=== PATIENT | male | born 2000 | race Caucasian/White ===

== ENCOUNTER 2021-08-22 14:35 | Observation (INO) ==
[2021-08-22] MEDS ORDERED: MoRPHine SULFATE 2 MG/ML CARP IV STA (14:52)
[2021-08-22] MEDS ORDERED: ONDANSETRON INJ 2 MG/ML 2 ML VIAL IV STA (14:52)
[2021-08-22] MEDS ORDERED: PROMETHAZINE 12.5 MG/50.5 ML BAG IV STA (14:52)
[2021-08-22] MEDS ORDERED: ACETAMINOPHEN 1000 MG/100 ML IV IV STA (14:52)
[2021-08-22] MEDS ORDERED: SODIUM CHLORIDE 0.9% 1000ML 1,000 ML IV ONE ×2 (14:52→14:55)
--- NOTE | 2021-08-22 14:57 | Emergency Department Note ---
Impression & Plan Precordial chest pain, SOB (shortness of breath), DKA (diabetic ketoacidosis), Acute dehydration, Epigastric abdominal pain ED Provider Note NAME: MAURY FRANCES AGE: 20 SEX: M : 2000 ARRIVES VIA: Ambulance INFORMANT: [Patient] ED PROVIDER(S): [Manfred Dumas MD] CHIEF COMPLAINT: Vomiting, chest pain HISTORY OF PRESENT ILLNESS: The patient is a 20-year-old male who states that he felt unwell yesterday. He began vomiting. Today, he has continued vomiting and has developed some chest and back pain. The pain seems to come almost in waves and is severe. No di arrhea. There has been no cough. No fever. He has no abdominal pain. He is diabetic. As per nursing staff, the patient's blood sugar was in the 300s. The patient has a history of DKA. No reported trauma, patient has no idea why he suddenly started feeling poorly yesterday. REVIEW OF SYSTEMS: See HPI for pertinent positives and negatives. A total of ten systems were reviewed and were otherwise negative. PMHx/PSHx: See Below SOCIAL HISTORY: See Below. PHYSICAL EXAM: GENERAL: Patient is in moderate distress, screaming at times, writhing on the bed. HEENT: No acute trauma, normocephalic atraumatic, mucous membranes dry, no nasal congestion, no scleral icterus. NECK: No stridor, no adenopathy, no meningismus, trachea is midline. LUNGS: Clear to auscultation bilaterally, no wheeze, no rhonchi, breath sounds equal. Increased respiratory rate. HEART: Tachycardic, regular rhythm, subtle systolic murmur. ABDOMEN: Soft, moderately tender in the epigastrium and right upper quadrant, bowel sounds positive, no hernias, no peritonitis. EXTREMITIES: No cyanosis or edema, full range of motion of all the joints without pain or difficulty, no signs for acute trauma. NEUROLOGIC: Oriented x 3, no acute motor or sensory deficits, no focal weakness. SKIN: No rash, no jaundice, no diaphoresis. DIFFERENTIAL DIAGNOSIS: Infection, UTI, DKA, pneumonia, dehydration, metabolic abnormality, hypo/hyperglycemia, electrolyte disturbance, anemia, hypoxia, cardiac sources, toxicologic issues, as well as other pathologies. EMERGENCY DEPARTMENT COURSE/PROCEDURES: ECG: Indication was chest pain. The ECG shows a sinus rhythm with some PACs. There is no ST elevation, no PVCs. The QTC is 495. There is significant baseline artifact seen. Continuous Cardiac Monitoring: An order was placed for continuous cardiac monitoring. The monitor shows a rate of 86 with sinus rhythm with PACs. Critical Care Note: I have personally spent 48 minutes of critical care time in the direct management of this patient. This includes bedside care, interpretation of diagnostic studies, and testing, discussion with consultants, patient, and family members, and other required patient management activities. This 48 minutes is in excess of all separately billable procedures. MEDICAL DECISION MAKING: There is no leukocytosis or concerning anemia. There is a normal platelet count. VBG shows a pH of 7.36. No hypoxia. Renal panel testing shows a low s odium a low carbon oxide and an anion gap of 25. Patient appeared to be acidotic based on the renal panel testing. Glucose was high at 444. Lactic acid level was elevated 2.6, likely from dehydration. There were a few subtle liver enzyme elevations, possibly from his vomiting. The patient appeared to be in euthyroid state. ECG showed a sinus rhythm with some PACs and some sinus arrhythmia. No ST elevation to suggest [place]. Cardiac enzyme testing x1 did not suggest acute cardiac injury. Alcohol level was undetectable. COVID test returns negative. Urinalysis result is currently pending. Chest x-ray did not show pneumonia or CHF, no mediastinal widening. Patient presented in quite a bit of distress/pain. He was aggressively managed. The patient received IV saline 2 L. He was given IV Phenergan, IV Zofran, IV morphine. He received IV Tylenol. He was placed on an insulin drip after an IV insulin bolus. Patient is markedly improved. His heart rate is improved, he is resting comfortably. He no longer has the distress that was present when he first arrived. The patient is aware of his findings, he has agreed to a hospital stay for further hydration and insulin therapy. I spoke with the patient and case management. The on-call hospitalist was consulted. Past Med/Surg History Medical History Acute hyperglycemia DKA (diabetic ketoacidosis) Social History Smoking Status: Never smoker Preferred Language: Ugandan Feels Safe at Home: Yes Allergies Allergies Allergy/AdvReac Type Severity Reaction Status Date / Time pollen extracts Allergy Intermediate Congested Verified 08/22/21 15:52 Home Meds Home Medications Medication Instructions Recorded Confirmed albuterol sulfate 90 mcg/actuation 2 puff INHALATION Q4 PRN 01/19/21 08/22/21 aerosol inhaler insulin aspart U-100 100 unit/mL See Rx Instructions .ROUTE .COMPLEX 01/19/21 08/22/21 subcutaneous solution (Novolog U-100 Insulin aspart) blood-glucose transmitter (Dexcom 08/22/21 08/22/21 G6 Transmitter) Results & Data (ED) Vital Signs Vital Signs - 24 hr 08/22/21 14:35 08/22/21 14:54 08/22/21 15:38 Temperature 36.4 C L Temperature Source Oral Pulse Rate 66 66 Pulse Rate [Right Finger] 95 H Pulse Rhythm Regular Pulse Rhythm [Right Finger] Regular Pulse Strength [Right Finger] Normal Respiratory Rate 26 H 26 H 19 Respiratory Effort / Characteristics Non-Labored Non-Labored Spontaneous Respiratory Depth Normal Normal Respiratory Pattern Regular Blood Pressure 112/54 L Blood Pressure [Right Arm] 118/54 L Blood Pressure Mean 73 Blood Pressure Mean [Right Arm] 75 Blood Pressure Position [Right Arm] Lying Pulse Oximetry 100 100 98 Oxygen Delivery Method Room Air Room Air Room Air Sepsis Recent Fever Within 48 Hours No Sepsis New/Unexplained Change in Mental Status No Sepsis Action Taken by Nursing No Action Required Home Medications Current Medication List: was personally reviewed by me Laboratory Data Attestation: I reviewed the patient's lab results. Result diagrams: 08/22/21 14:50 08/22/21 14:50 Lab Results 08/22/21 08/22/21 08/22/21 Range/Units 14:48 14:50 14:50 WBC 10.77 (4.8-10.8) K/uL RBC 5.11 (4.7-6.1) M/uL Hgb 14.7 (14.0-18.0) g/dL Hct 43.4 (42-52) % MCV 84.9 (80-100) fL MCH 28.8 (25-34) pg MCHC 33.9 (32-36) g/dL RDW Std Deviation 43.2 (36.4-46.3) fL RDW Coeff of Gila 13.9 (11.5-14.5) % Plt Count 346 (130-400) K/uL MPV 12.9 H (7.4-10.4) fL Immature Gran % (Auto) 0.3 % Neut % (Auto) 73.6 % Lymph % (Auto) 22.0 % [place] % (Auto) 2.9 % Eos % (Auto) 0.9 % Baso % (Auto) 0.3 % Neut # (Auto) 7.93 H (1.4-6.5) K/uL Lymph # (Auto) 2.37 (1.2-3.4) K/uL [place] # (Auto) 0.31 (0.11-0.59) K/uL Eos # (Auto) 0.10 (0-0.5) K/uL Baso # (Auto) 0.03 (0-0.2) K/uL Immature Gran # (Auto) 0.03 H (0.00-0.02) K/uL VBG pH (7.36-7.41) VBG pCO2 (38-50) mmHg VBG pO2 mmHg VBG HCO3 mmol/L VBG O2 Saturation % VBG Base Excess mEq/L Barometric Pressure mm/Hg Sodium 131 L (136-145) mmol/L Potassium 4.5 (3.5-5.1) mmol/L Chloride 94 L (98-107) mmol/L Carbon Dioxide 12 L (21-32) mmol/L Anion Gap 25 H (3-11) BUN 24 H (6-23) mg/dl Creatinine 1.17 (0.6-1.4) mg/dl Est Cr Clr Drug Dosing 89.6 ml/min Est GFR ( Amer) 104.1 ml/min Est GFR (Non-Af Amer) 89.8 ml/min BUN/Creatinine Ratio 20.5 H (10-20) Glucose 444 H* (70-99(Fasting)) mg/dl POC Glucose 394 H* (70-99) mg/dl Lactate (0.4-2.0) mmol/L Calcium 9.6 (8.5-10.1) mg/dl Magnesium 2.0 (1.7-2.4) mg/dl Total Bilirubin 1.3 H (0.2-1.0) mg/dl AST 22 (13-39) U/L ALT 21 (7-52) U/L Alkaline Phosphatase 158 H (34-104) U/L Total Creatine Kinase 192 (30-223) U/L Troponin I High Sens < 2.3 (0-20) pg/ml Total Protein 7.3 (6.0-8.3) gm/dl Albumin 4.3 (3.4-5.0) gm/dl Globulin 3.0 (2.5-4.0) gm/dl Albumin/Globulin Ratio 1.4 (0.9-2) TSH (0.300-4.500) uIu/ml Ethyl Alcohol mg/dL (<10.0) mg/dl SARS-CoV-2, RNA, NAAT (NEGATIVE) 08/22/21 08/22/21 08/22/21 Range/Units 14:50 15:08 15:22 WBC (4.8-10.8) K/uL RBC (4.7-6.1) M/uL Hgb (14.0-18.0) g/dL Hct (42-52) % MCV (80-100) fL MCH (25-34) pg MCHC (32-36) g/dL RDW Std Deviation (36.4-46.3) fL RDW Coeff of Gila (11.5-14.5) % Plt Count (130-400) K/uL MPV (7.4-10.4) fL Immature Gran % (Auto) % Neut % (Auto) % Lymph % (Auto) % [place] % (Auto) % Eos % (Auto) % Baso % (Auto) % Neut # (Auto) (1.4-6.5) K/uL Lymph # (Auto) (1.2-3.4) K/uL [place] # (Auto) (0.11-0.59) K/uL Eos # (Auto) (0-0.5) K/uL Baso # (Auto) (0-0.2) K/uL Immature Gran # (Auto) (0.00-0.02) K/uL VBG pH (7.36-7.41) VBG pCO2 (38-50) mmHg VBG pO2 mmHg VBG HCO3 mmol/L VBG O2 Saturation % VBG Base Excess mEq/L Barometric Pressure mm/Hg Sodium (136-145) mmol/L Potassium (3.5-5.1) mmol/L Chloride (98-107) mmol/L Carbon Dioxide (21-32) mmol/L Anion Gap (3-11) BUN (6-23) mg/dl Creatinine (0.6-1.4) mg/dl Est Cr Clr Drug Dosing ml/min Est GFR ( Amer) ml/min Est GFR (Non-Af Amer) ml/min BUN/Creatinine Ratio (10-20) Glucose (70-99(Fasting)) mg/dl POC Glucose (70-99) mg/dl Lactate 2.6 H* (0.4-2.0) mmol/L Calcium (8.5-10.1) mg/dl Magnesium (1.7-2.4) mg/dl Total Bilirubin (0.2-1.0) mg/dl AST (13-39) U/L ALT (7-52) U/L Alkaline Phosphatase (34-104) U/L Total Creatine Kinase (30-223) U/L Troponin I High Sens (0-20) pg/ml Total Protein (6.0-8.3) gm/dl Albumin (3.4-5.0) gm/dl Globulin (2.5-4.0) gm/dl Albumin/Globulin Ratio (0.9-2) TSH 0.527 (0.300-4.500) uIu/ml Ethyl Alcohol mg/dL (<10.0) mg/dl SARS-CoV-2, RNA, NAAT NEGATIVE (NEGATIVE) 08/22/21 08/22/21 08/22/21 Range/Units 15:22 15:22 16:09 WBC (4.8-10.8) K/uL RBC (4.7-6.1) M/uL Hgb (14.0-18.0) g/dL Hct (42-52) % MCV (80-100) fL MCH (25-34) pg MCHC (32-36) g/dL RDW Std Deviation (36.4-46.3) fL RDW Coeff of Gila (11.5-14.5) % Plt Count (130-400) K/uL MPV (7.4-10.4) fL Immature Gran % (Auto) % Neut % (Auto) % Lymph % (Auto) % [place] % (Auto) % Eos % (Auto) % Baso % (Auto) % Neut # (Auto) (1.4-6.5) K/uL Lymph # (Auto) (1.2-3.4) K/uL [place] # (Auto) (0.11-0.59) K/uL Eos # (Auto) (0-0.5) K/uL Baso # (Auto) (0-0.2) K/uL Immature Gran # (Auto) (0.00-0.02) K/uL VBG pH 7.36 (7.36-7.41) VBG pCO2 27 L (38-50) mmHg VBG pO2 59 mmHg VBG HCO3 15 mmol/L VBG O2 Saturation 92.0 % VBG Base Excess -8.9 mEq/L Barometric Pressure 729.1 mm/Hg Sodium (136-145) mmol/L Potassium (3.5-5.1) mmol/L Chloride (98-107) mmol/L Carbon Dioxide (21-32) mmol/L Anion Gap (3-11) BUN (6-23) mg/dl Creatinine (0.6-1.4) mg/dl Est Cr Clr Drug Dosing ml/min Est GFR ( Amer) ml/min Est GFR (Non-Af Amer) ml/min BUN/Creatinine Ratio (10-20) Glucose (70-99(Fasting)) mg/dl POC Glucose 386 H* (70-99) mg/dl Lactate (0.4-2.0) mmol/L Calcium (8.5-10.1) mg/dl Magnesium (1.7-2.4) mg/dl Total Bilirubin (0.2-1.0) mg/dl AST (13-39) U/L ALT (7-52) U/L Alkaline Phosphatase (34-104) U/L Total Creatine Kinase (30-223) U/L Troponin I High Sens (0-20) pg/ml Total Protein (6.0-8.3) gm/dl Albumin (3.4-5.0) gm/dl Globulin (2.5-4.0) gm/dl Albumin/Globulin Ratio (0.9-2) TSH (0.300-4.500) uIu/ml Ethyl Alcohol mg/dL < 10.0 (<10.0) mg/dl SARS-CoV-2, RNA, NAAT (NEGATIVE) Administered Medications Insulin Human Regular 250 (units/ Sodium Chloride) 250 mls @ 7 mls/hr IV .Q24H ARABELLA; Protocol Stop: 09/21/21 15:59 Last Admin: 08/22/21 16:24 Dose: 7 units/hr, 7 mls/hr Documented by: [id number] Cosigned by: [id number] Discontinued Medications Acetaminophen (Acetaminophen 1000 Mg/100 Ml Iv) 1,000 mg IV NOW STA Stop: 08/22/21 14:53 Last Admin: 08/22/21 15:02 Dose: 1,000 mg Documented by: [id number] Sodium Chloride (Nss 1000ml) 1,000 mls @ 999 mls/hr IV .Q1H1M ONE Stop: 08/22/21 15:52 Last Infusion: 08/22/21 16:02 Dose: 0 mls/hr Documented by: [id number] Admin: 08/22/21 15:00 Dose: 999 mls/hr Documented by: [id number] Promethazine HCl (Phenergan) 12.5 mg in 50.5 mls @ 202 mls/hr IV NOW STA Stop: 08/22/21 15:06 Last Infusion: 08/22/21 16:03 Dose: 0 mls/hr Documented by: [id number] Admin: 08/22/21 15:05 Dose: 202 mls/hr Documented by: [id number] Sodium Chloride (Nss 1000ml) 1,000 mls @ 999 mls/hr IV .Q1H1M ONE Stop: 08/22/21 15:55 Last Admin: 08/22/21 16:05 Dose: 999 mls/hr Documented by: [id number] Insulin Human Regular (Novolin-R Bolus From Bag) 7 units IV ONE ONE Stop: 08/22/21 16:01 Last Admin: 08/22/21 16:24 Dose: 7 units Documented by: [id number] Cosigned by: [id number] Miscellaneous (Stat Insulin Drip) 1 ea N/A NOW STA Stop: 08/22/21 15:49 Last Admin: 08/22/21 16:26 Dose: Not Given Documented by: [id number] Miscellaneous (Dka Goal Range 150-250 Mg/Dl) 1 ea N/A ONE ONE Stop: 08/22/21 15:49 Last Admin: 08/22/21 16:26 Dose: Not Given Documented by: [id number] Miscellaneous (Stat Iv Infusion Titration Per Protocol) 1 ea N/A NOW STA Stop: 08/22/21 16:17 Last Admin: 08/22/21 16:26 Dose: Not Given Documented by: [id number] Miscellaneous (Stat Iv Infusion Titration Per Protocol) 1 ea N/A NOW STA Stop: 08/22/21 16:17 Last Admin: 08/22/21 16:26 Dose: Not Given Documented by: [id number] Morphine Sulfate (Morphine Sulfate 2 Mg/Ml Carp) 2 mg IV NOW STA Stop: 08/22/21 14:53 Last Admin: 08/22/21 15:00 Dose: 2 mg Documented by: [id number] Ondansetron HCl (Ondansetron Inj 2 Mg/Ml 2 Ml Vial) 4 mg IV NOW STA Stop: 08/22/21 14:53 Last Admin: 08/22/21 15:00 Dose: 4 mg Documented by: [id number] Imaging Data Radiologist's Impression: Chest X-Ray 08/22/21 14:52 SINGLE VIEW CHEST CLINICAL HISTORY: Atypical chest pain FINDINGS: An AP, portable, upright chest radiograph is compared to study dated 01/19/2021. The cardiomediastinal silhouette is unremarkable. The lungs and pleural spaces are clear. No pneumothorax is seen. The bony thorax is grossly intact. IMPRESSION: No active disease in the chest. ACT 112: Negative or not required by law. Electronically signed by: Manfred Pettit M.D. 08/22/2021 3:32 PM Discharge Plan Visit Data Chief Complaint: Vomiting ED Provider: Manfred Dumas Discharge Problem: Precordial chest pain, SOB (shortness of breath), DKA (diabetic ketoacidosis), Acute dehydration, Epigastric abdominal pain Patient Disposition: Admitted As Inpatient Condition: Fair Forms Stand Alone Forms: My [facility] weipass Prescriptions Prescriptions: No Action insulin aspart U-100 [Novolog U-100 Insulin aspart] 100 unit/mL solution See Rx Instructions .ROUTE .COMPLEX RF: 0 albuterol sulfate 90 mcg/actuation HFA aerosol inhaler 2 puff INHALATION Q4 PRN (Reason: Shortness Of Breath Or Wheezing) RF: 0 (DME) Dexcom G6 Transmitter Device MISCELLANEOUS RF: 0 Referrals Referrals: PCP,NO [Primary Care Provider] -
[2021-08-22 15:21] LABS: Basophils # (auto) 0.03 K/uL (0-0.2); Basophils % (auto) 0.3 %; Eosinophils % (auto) 0.9 %; Hematocrit (blood only) 43.4 % (42-52); Hemoglobin 14.7 g/dL (14.0-18.0); Immature Granulocytes # (auto) 0.03 K/uL (0.00-0.02); Immature Granulocytes % (auto) 0.3 %; Lymphocytes # (auto) 2.37 K/uL (1.2-3.4); Mean Corpuscular Hemoglobin 28.8 pg (25-34); Mean Corpuscular Hgb Conc 33.9 g/dL (32-36); Mean Corpuscular Volume 84.9 fL (80-100); Mean Platelet Volume 12.9 fL (7.4-10.4); Monocytes # (auto) 0.31 K/uL (0.11-0.59); Monocytes % (auto) 2.9 %; Neutrophils # (auto) 7.93 K/uL (1.4-6.5); Neutrophils % (auto) 73.6 %; Platelet Count 346 K/uL (130-400); RDW Coefficient of Variation 13.9 % (11.5-14.5); RDW Standard Deviation 43.2 fL (36.4-46.3); Red Blood Count 5.11 M/uL (4.7-6.1); White Blood Count 10.77 K/uL (4.8-10.8)
--- NOTE | 2021-08-22 15:33 | XRay Report ---
SINGLE VIEW CHEST CLINICAL HISTORY: Atypical chest pain FINDINGS: An AP, portable, upright chest radiograph is compared to study dated 01/19/2021. The cardiom ediastinal silhouette is unremarkable. The lungs and pleural spaces are clear. No pneumothorax is see n. The bony thorax is grossly intact. IMPRESSION: No active disease in the chest. ACT 112: Negative or not required by law. Electronically signed by: Manfred Pettit M.D. 08/22/2021 3:32 PM
[2021-08-22 15:44] LABS: Alanine Aminotransferase 21 U/L (7-52); Albumin Globulin Ratio 1.4 (0.9-2); Albumin Level 4.3 gm/dl (3.4-5.0); Alkaline Phosphatase 158 U/L (34-104); Anion Gap 25 (3-11); Aspartate Aminotransferase 22 U/L (13-39); BUN Creatinine Ratio 20.5 (10-20); Bilirubin,Total 1.3 mg/dl (0.2-1.0); Blood Urea Nitrogen 24 mg/dl (6-23); Calcium 9.6 mg/dl (8.5-10.1); Carbon Dioxide 12 mmol/L (21-32); Chloride 94 mmol/L (98-107); Creatine Kinase 192 U/L (30-223); Creatinine Clr Calc Pharmacy 89.6 ml/min; Est GFR (African American) 104.1 ml/min; Est GFR (Non-African American) 89.8 ml/min; Glucose 444 mg/dl (70-99(Fasting)); Potassium 4.5 mmol/L (3.5-5.1); Sodium 131 mmol/L (136-145); Total Protein 7.3 gm/dl (6.0-8.3)
[2021-08-22] MEDS ORDERED: CARBOHYDRATES FOR HYPOGLYCEMIA PO PRN (15:48)
[2021-08-22] MEDS ORDERED: GLUCOSE 10 TABS/TUBE PO PRN (15:48)
[2021-08-22] MEDS ORDERED: GLUCAGON FOR INJ 1 MG VIAL SQ PRN (15:48)
[2021-08-22] MEDS ORDERED: GLUCOSE 40% GEL 15 GM TUBE PO PRN (15:48)
[2021-08-22] MEDS ORDERED: DKA GOAL RANGE 150-250 mg/dl ONE (15:48)
[2021-08-22] MEDS ORDERED: STAT INSULIN DRIP STA (15:48)
[2021-08-22] MEDS ORDERED: DEXTROSE 50% 50 ML SYRINGE IV PRN (15:48)
[2021-08-22 15:52] LABS: Base Excess VBG -8.9 mEq/L; pH VBG 7.36 (7.36-7.41)
[2021-08-22 15:52] LABS: Troponin I High Sensitivity < 2.3 pg/ml (0-20)
[2021-08-22] MEDS ORDERED: NovoLIN-R BOLUS FROM BAG IV ONE (16:00)
[2021-08-22] MEDS ORDERED: INSULIN REGULAR 250 UNITS in SODIUM CHLORIDE 0.9% 247.5 ML IV SCH ×2 (16:00→18:03)
[2021-08-22] MEDS ORDERED: STAT IV Infusion **Titration per Protocol STA ×2 (16:16)
--- NOTE | 2021-08-22 16:17 | History & Physical Report ---
Date of Service August 22, 2021 Assessment & Plan (1) Hyperglycemia: Plan: No acidosis on VBG however with anion gap 25, Bicarb 12, glucose 444. Started on inulin IV drip in the ER with DKA protocol aim BSG 250-350. Will continue this until his anion gap closes. IV fluids per DKA protocol. Normosol @ 200ml/hr until K < 5.1 then switch to 0.5NSS with 20 meq KCl @ 200ml/hr, until glucose reaches goal range then switch to D5 0.5NSS + 20 meq KCl @ 200 ml/hr NPO until anion gap closes. Venous pH, BMP, Mg, PO q4h Consult pharmacy for glycemic control (2) Type 1 diabetes mellitus: Plan: HbA1C pending (3) Epigastric abdominal pain: Plan: Lipase 5 Suspect related to vomiting (4) Mild intermittent asthma: Plan: No acute exacerbation Albuterol PRN Plan: VTE Prophylaxis - low risk Diet - NPO as above Disposition - observation status to PCU Admission and Anticipated Discharge Date Admission Date: August 22, 2021 History of Present Illness Chief Complaint: Nausea and vomiting Primary Care Provider: NO PCP Roberto Singh is a 20 year old male who presents to the ER with nausea and vomiting. He reports this started yesterday morning. No definitive precipitating event but he thinks he may have had some eggs which didn't agree with him. He felt well the previous day and taking his insulin via insulin pump. Associated chest/epigastric pain although this started after the nausea and vomiting. He denies any shortness of breath, cough, fever, chills, diarrhea, urinary symptoms. In the ER he was noted to be hyperglycemic (444 mg/dL) with low bicarb (12mmol/L) and anion gap 25. Venous pH fortunately 7.36 therefore he did not meet criteria for diabetic ketoacidosis however given significant symptoms, bicarb and anion gap he was appropriately treated as such with initial intravenous fluid resuscitation and started on insulin IV drip. He was referred to medicine for admission and ongoing management of DKA and dehydration. Allergies Allergy/AdvReac Type Severity Reaction Status Date / Time pollen extracts Allergy Intermediate Congested Verified 08/22/21 15:52 Home Medications Medication Instructions Recorded Confirmed Type albuterol sulfate 90 mcg/actuation 2 puff INHALATION Q4 PRN 01/19/21 08/22/21 History aerosol inhaler insulin aspart U-100 100 unit/mL See Rx Instructions .ROUTE .COMPLEX 01/19/21 08/22/21 History subcutaneous solution (Novolog U-100 Insulin aspart) blood-glucose transmitter (Dexcom 08/22/21 08/22/21 History G6 Transmitter) Past Med/Surg History Medical History (Updated 08/22/21 @ 17:01 by Jason Monteiro MD) Acute hyperglycemia DKA (diabetic ketoacidosis) Mild intermittent asthma Type 1 diabetes mellitus Social History Smoking Status: Never smoker Hx Alcohol Use: Yes Alcohol type: beer and hard liquor Hx Substance Use: Yes Last Used Substance: Unknown Preferred Language: Slovenian Communication Ability: Effective Noc Analyst Required: No Beliefs That Will Affect Care: None Current Living Situation: Alone Other Information That Helps Us Care for You: No Feels Safe at Home: Yes Safety Concerns: Feels Safe At This Time Assistive Devices: None Review of Systems Review of Systems: All systems reviewed & are unremarkable except as noted in HPI & below Physical Exam Constitutional: WD/WN, vitals as above Eyes: + anicteric sclerae; normal pupil size ENMT: external ear and nose normal, oropharynx normal Neck: trachea midline, no thyromegaly Respiratory: normal respiratory effort, lungs clear to auscultation Cardiovascular: RRR, no murmur, no edema Gastrointestinal (Abdomen): Inspection/Auscultation: normal bowel sounds Percussion/Palpation: + abdomen tender (epigastric without rebound) and abdomen soft; no guarding and abdomen not rigid Musculoskeletal: no cyanosis or clubbing, extremities motor strength 5/5 Skin: no rashes, warm and dry Neurologic: moves all extremities and awake; not confused Psychiatric: A+Ox3, euthymic affect Genitourinary: no CVA tenderness Results & Data Results & Data ([facility]) Vital Signs (Past 12 Hours) Vital Signs Temp Pulse Pulse Resp BP BP Pulse Ox 08/22/21 15:38 95 H 19 118/54 L 98 08/22/21 14:54 66 26 H 100 08/22/21 14:35 36.4 C L 66 26 H 112/54 L 100 Diagnostic Findings SINGLE VIEW CHEST CLINICAL HISTORY: Atypical chest pain FINDINGS: An AP, portable, upright chest radiograph is compared to study dated 01/19/2021. The cardiomediastinal silhouette is unremarkable. The lungs and pleural spaces are clear. No pneumothorax is seen. The bony thorax is grossly intact. IMPRESSION: No active disease in the chest. Medications Administered ER Medications Given: NSS 2L bolis Promethazine 12.5mg IV Ondansetron 4mg IV Morphine 2mg IV Insulin IV 7 unit bolus and started on IV drip ECG Indication: abdominal pain Rate (beats per minute): 74 Rhythm: sinus with SA Findings: + LAFB and + prolonged QT (Qtc 495ms) Comparison ECG Date: no prior available Code Status & VTE Plan Code Status Full VTE Prophylaxis Plan VTE Prophylaxis will be ordered: No Reason for no VTE drug order: Treatment not indicated Reason for no VTE mechanical prophylaxis: Treatment not indicated PG Care Time/CCT Total # of Minutes Spent Total Time Spent with Patient: Total time spent is greater than 50% in coordination of care (as documented) at patient's floor/unit and/or counseling patient: Coding Level of Care Code INT OBSERVATION CARE 70M LVL 3 Diagnoses Hyperglycemia R73.9 Type 1 diabetes mellitus E10.9 Epigastric abdominal pain R10.13 Mild intermittent asthma J45.20
[2021-08-22] MEDS ORDERED: INSULIN ASPART PER UNIT SC SCH (16:30)
[2021-08-22 17:58] LABS: Troponin I High Sensitivity < 2.3 pg/ml (0-20)
[2021-08-22 18:02] LABS: Lipase 5 U/L (11-82)
[2021-08-22] MEDS ORDERED: ONDANSETRON INJ 2 MG/ML 2 ML VIAL IV PRN (18:03)
[2021-08-22] MEDS ORDERED: PENDING 1/2NSS+40mEq KCL IVF SCH (18:03)
[2021-08-22] MEDS ORDERED: NORMOSOL-R 1,000 ML IV SCH (18:03)
[2021-08-22] MEDS ORDERED: PENDING D5 1/2NS+40mEq KCL IVF SCH (18:03)
[2021-08-22] MEDS ORDERED: PHARMACY GLYCEMIC MGMT CONSULT PRN (18:03)
[2021-08-22] MEDS: INSULIN ASPART PER UNIT SC SCH ×2 (18:34→20:17)
--- NOTE | 2021-08-22 19:35 | Pharmacy Report ---
Pharmacy Glycemic Short Note 2 - Date of Service August 22, 2021 - Glycemic Short BSG Results (Last 24 hours): 08/22/21 08/22/21 08/22/21 14:48 14:50 16:09 Glucose 444 H* POC Glucose 394 H* 386 H* 08/22/21 08/22/21 17:18 18:23 Glucose POC Glucose 299 H 206 H OUTPATIENT ANTIDIABETIC REGIMEN: * Novolog pump, up to 70 units/day * HbA1c pending ASSESSMENT: * 20 yo M with T1DM admitted with hyperglycemia and near DKA (not acidotic, but AG elevated and CO2 low) * Insulin drip initiated * Fluids appropriate * Continue insulin drip until AG normalized per Dr. Monteiro's note. Anticipate ability to transition off tomorrow * Spoke w RN - plans to speak with patient about obtaining pump supplies to possibly transition back tomorrow PLAN FOR INPATIENT GLYCEMIC CONTROL: * Insulin drip per DKA protocol * Bolus insulin * Nutritional / Prandial insulin per carb ratio per insulin drip calculator
[2021-08-22] MEDS: D5W AND 1/2NSS + 20MEQ KCL 20 MEQ/1,000 ML BAG IV SCH (19:42)
[2021-08-22 20:17] LABS: BUN Creatinine Ratio 19.6 (10-20); Calcium 8.7 mg/dl (8.5-10.1); Est GFR (Non-African American) 100.1 ml/min; Magnesium 2.1 mg/dl (1.7-2.4); Potassium 4.8 mmol/L (3.5-5.1)
[2021-08-22] MEDS ORDERED: FAMOTIDINE 20 MG in SYRINGE 3 ML IV SCH (21:00)
[2021-08-22 22:47] LABS: BUN Creatinine Ratio 17.3 (10-20); Calcium 8.5 mg/dl (8.5-10.1); Creatinine Clr Calc Pharmacy 100.8 ml/min; Est GFR (African American) 120.1 ml/min; Est GFR (Non-African American) 103.6 ml/min; Magnesium 2.1 mg/dl (1.7-2.4); Phosphorus 3.9 mg/dl (2.5-4.9); Potassium 4.7 mmol/L (3.5-5.1)
[2021-08-23] MEDS: D5W AND 1/2NSS + 20MEQ KCL 20 MEQ/1,000 ML BAG IV SCH ×3 (00:18→09:50)
[2021-08-23 03:00] LABS: BUN Creatinine Ratio 14.3 (10-20); Calcium 8.4 mg/dl (8.5-10.1); Creatinine Clr Calc Pharmacy 99.8 ml/min; Est GFR (African American) 118.7 ml/min; Est GFR (Non-African American) 102.4 ml/min; Magnesium 2.1 mg/dl (1.7-2.4); Phosphorus 3.5 mg/dl (2.5-4.9)
[2021-08-23 07:12] LABS: BUN Creatinine Ratio 12.9 (10-20); Calcium 8.3 mg/dl (8.5-10.1); Est GFR (African American) 124.4 ml/min; Est GFR (Non-African American) 107.3 ml/min; Phosphorus 3.6 mg/dl (2.5-4.9); Potassium 4.1 mmol/L (3.5-5.1)
[2021-08-23 07:46] LABS: Estimated Average Glucose 217 mg/dl; Hemoglobin A1C 9.2 % (4.5-5.6)
[2021-08-23] MEDS: INSULIN ASPART PER UNIT SC SCH (08:17)
[2021-08-23 09:23] LABS: Appearance Urine Clear (Clear); Bilirubin Urine Negative (Negative); Blood Urine Negative (Negative); Color Urine Yellow; Glucose Urine UA 2+ (Negative); Ketones Urine 2+ (Negative); Leukocyte Esterase Urine Negative (Negative); Nitrite Urine Negative (Negative); Protein Urine Negative (Negative); Specific Gravity Urine 1.029 (1.000-1.030); Urobilinogen Urine Negative (Negative); pH Urine 5.5 (4.5-7.5)
[2021-08-23 09:36] LABS: Albumin Level 3.3 gm/dl (3.4-5.0); Bilirubin Direct 0.2 mg/dl (0-0.2); Bilirubin,Total 0.8 mg/dl (0.2-1.0); Total Protein 5.8 gm/dl (6.0-8.3)
[2021-08-23] MEDS: ACETAMINOPHEN 325 MG TAB PO PRN ×2 (09:44→15:55)
[2021-08-23 09:58] LABS: Amphetamines+Metham, Urine Neg (Neg); Barbiturates, Urine Neg (Neg); Benzodiazepine, Urine Neg (Neg); Cocaine, Urine Neg (Neg); MDMA (Ecstacy), Urine Neg (Neg); Methadone, Urine Neg (Neg); Opiate, Urine Pos (Neg); Phencyclidine, Urine Neg (Neg)
[2021-08-23] MEDS ORDERED: INSULIN ASPART 100 UNITS/ML VIAL SC PRN (10:15)
[2021-08-23] MEDS: NovoLOG INSULIN PUMP SCH ×3 (11:09→16:30)
--- NOTE | 2021-08-23 15:08 | Pharmacy Report ---
Pharmacy Glycemic Short Note 2 - Date of Service August 23, 2021 - Glycemic Short BSG Results (Last 24 hours): 08/22/21 08/22/21 08/22/21 14:50 16:09 17:18 Glucose 444 H* POC Glucose 386 H* 299 H 08/22/21 08/22/21 08/22/21 18:23 19:20 20:02 Glucose 204 H POC Glucose 206 H 166 H 08/22/21 08/22/21 08/22/21 21:05 22:07 22:19 Glucose 205 H POC Glucose 194 H 172 H 08/22/21 08/23/21 08/23/21 23:57 02:02 02:30 Glucose 149 H POC Glucose 177 H 142 H 08/23/21 08/23/21 08/23/21 03:21 04:13 04:58 Glucose POC Glucose 110 H 117 H 156 H 08/23/21 08/23/21 08/23/21 06:06 06:11 07:18 Glucose 142 H POC Glucose 125 H 133 H 08/23/21 08/23/21 08/23/21 08:46 09:43 11:02 Glucose POC Glucose 103 H 111 H 217 H 08/23/21 08/23/21 11:35 14:46 Glucose POC Glucose 202 H 265 H OUTPATIENT ANTIDIABETIC REGIMEN: Novolog Insulin pump: Basal: 9583-2956 1.2 units/hr 5424-6054 1 unit/hr 2125-5909 0.9 units/hr 9239-6661 0.9 units/hr 2643-3342 1 unit/hr 9744-2103 1.2 units/hr Total: 24.6 units Bolus: ICR: 1:11 (5255-4651) 1:9 (1079-4545) 1:10 (1278-3302) SF:50 BG Target: 110 TDD: ~46 units Basal: 23.96 units (52%) Bolus: 21.73 units (48%) ASSESSMENT: 08/23 * Patient feeling better this morning, per RN no n/v - discussed with provider and plan to restart home insulin pump. Confirmed patient had all supplies and pump reattached this morning, insulin drip discontinued * DM educator in to see patient today, reviewed insulin pump/sick days/monitoring of ketones with patient - see her notes * Will trial with insulin pump and trend blood sugars. If BSGs trending upward may need to investigate to ensure pump functioning properly 08/22 * 20 yo M with T1DM admitted with hyperglycemia and near DKA (not acidotic, but AG elevated and CO2 low) * Insulin drip initiated * Fluids appropriate * Continue insulin drip until AG normalized per Dr. Monteiro's note. Anticipate ability to transition off tomorrow * Spoke w RN - plans to speak with patient about obtaining pump supplies to possibly transition back tomorrow PLAN FOR INPATIENT GLYCEMIC CONTROL: * Resumed home insulin pump
[2021-08-23] MEDS ORDERED: INSULIN ASPART PER UNIT SC STA (15:55)
--- NOTE | 2021-08-23 17:01 | Discharge Summary ---
Date of Service August 23, 2021 Admission HPI Per Admitting Provider Roberto Singh is a 20 year old male who presents to the ER with nausea and vomiting. He reports this started yesterday morning. No definitive precipitating event but he thinks he may have had some eggs which didn't agree with him. He felt well the previous day and taking his insulin via insulin pump. Associated chest/epigastric pain although this started after the nausea and vomiting. He denies any shortness of breath, cough, fever, chills, diarrhea, urinary symptoms. In the ER he was noted to be hyperglycemic (444 mg/dL) with low bicarb (12mmol/L) and anion gap 25. Venous pH fortunately 7.36 therefore he did not meet criteria for diabetic ketoacidosis however given significant symptoms, bicarb and anion gap he was appropriately treated as such with initial intravenous fluid resuscitation and started on insulin IV drip. He was referred to medicine for admission and ongoing management of DKA and dehydration. Principal Diagnosis Hyperglycemia, ketosis without acidosis Discharge Exam Constitutional WD/WN, vitals as above Eyes + anicteric sclerae; normal pupil size Respiratory normal respiratory effort, lungs clear to auscultation Cardiovascular RRR, no murmur, no edema Gastrointestinal (Abdomen) Inspection/Auscultation: normal bowel sounds Percussion/Palpation: + abdomen tender (mild epigastric, improved from admission) and abdomen soft; no guarding and abdomen not rigid Psychiatric A+Ox3, euthymic affect Discharge Data Allergies Allergy/AdvReac Type Severity Reaction Status Date / Time pollen extracts Allergy Intermediate Congested Verified 08/22/21 15:52 Consultations 08/22/21 15:56 ED Decision to Admit Stat Diabetes Follow up Diabetes Follow-up Needed for HgbA1c >9% Hospital Course (1) Hyperglycemia: Roberto Singh is a 20 year old male observed overnight at [facility] from August 22 - 2021 due to nausea, vomiting and hyperglycemia. Due to significantly low bicarb levels and anion gap from ketosis he was treated as a mild diabetic ketoacidosis despite normal venous ph. He received intravenous fluids, electrolyte replacement and intravenous insulin. Anion gap subsequently closed overnight and he was switched back to your usual insulin pump. He is now tolerating food without nausea or vomiting however glucose values rising therefore suspect kink insulin pump site caused his admission and he was not receiving insulin through his pump. He will change the site at home and has back up insulin in case this doesn't work. He was given Novolog 3 units on discharge to hold him over until he is able to get home and change his site. The insulin pump itself was inspected by our development and housing director and appears to be working well. Pancreatitis was ruled out with normal lipase. He was given famotidine for epigastric pain which mostly resolved overnight, recommended continuing this for the next 2-3 days. Ondansetron prescribed as needed for any ongoing nausea or vomiting but suspect his hyperglycemia caused this rather than the other way around. He was recommended to follow up with his artificial insemination technician on discharge. (2) Type 1 diabetes mellitus: (3) Epigastric abdominal pain: (4) Mild intermittent asthma: Total Time Total Time Spent Total Time Spent (In Minutes): 40 Discharge Plan Discharge Items Patient Disposition: Home - Self-Care Reason For Visit: HYPERGLYCEMIA, KETOSIS WITHOUT ACIDOSIS Discharge Diagnosis: Nausea, vomiting, hyperglycemia, ketosis without acidosis Condition on Discharge: Fair Activity: Resume your previous activity Non-emergency contact: Primary Care Provider Call non-emergency contact if: you have any medication questions and your symptoms worsen Follow-up/Referrals: PCP,NO [Primary Care Provider] - Diet: Carb Count or DM1 Addtl Attending Provider Instructions: You were observed overnight at [facility] from August 22 - 2021 due to nausea, vomiting and elevated glucose levels. Due to significantly low bicarb levels and anion gap due to elevated ketones your were treated as a mild diabetic ketoacidosis despite normal ph. This was treated with intravenous fluids, electrolyte replacement and intravenous insulin. Your anion gap subsequently closed and you were switched back to your usual insulin pump. You are now tolerating food without nausea or vomiting. Pancreatitis was ruled out with normal lipase. Recommend continuing Pepcid (famotidine) for the next 3 days due to significant epigastric pain on arrival to reduce stomach acid. Please follow up with your artificial insemination technician on discharge for ongoing insulin management. Ondansetron prescribed as needed for any ongoing nausea or vomiting. Possibly admission due to a kink in the insulin pump line as your glucose levels continued to rise after switching to your insulin pump from the intravenous drip. As discussed we will give you 3 units of Novolog prior to discharge and you will switch the insulin pump site as soon as you get your supplies back at your dorms right after discharge. Kind regards, Dr Jason Monteiro Pending Studies at Discharge: No Stand-Alone Forms: [facility] [employer], Smoking Cessation Medications and DC Order Prescriptions: New famotidine 20 mg tablet 20 mg PO DAILY PRN (Reason: Gastritis) Qty: 30 RF: 0 ondansetron 4 mg tablet,disintegrating 4 mg PO Q8H PRN (Reason: nausea and vomiting) Qty: 10 RF: 0 Continued insulin aspart U-100 [Novolog U-100 Insulin aspart] 100 unit/mL solution See Rx Instructions .ROUTE .COMPLEX RF: 0 albuterol sulfate 90 mcg/actuation HFA aerosol inhaler 2 puff INHALATION Q4 PRN (Reason: Shortness Of Breath Or Wheezing) RF: 0 (DME) Dexcom G6 Transmitter Device MISCELLANEOUS RF: 0 Discharge Orders: Discharge Order (Routine); Ordered 08/23/21 Ordered By: Jason Varela/Other Patient Handouts: Diabetes and Drinking Alcohol, CGM, Diabetes: Sick-Day Plan, Diabetes Manage Stress Admission Data Admit Date/Time: 08/22/21 16:41 Attending Provider: Jason Monteiro Admit Provider: Jason Monteiro Primary Care Provider: PCP,NO Other Providers: Jason Monteiro Other Interventions: Discharge Summary Assessment (RN) Last Done: 08/23/21 16:16 Coding Level of Care Code 04091 OBS Care - Discharge Diagnoses Hyperglycemia R73.9 Type 1 diabetes mellitus E10.9 Epigastric abdominal pain R10.13 Mild intermittent asthma J45.20
--- NOTE | 2021-08-23 21:26 | Electrocardiogram Report ---
Test Reason : Blood Pressure : / mmHG Vent. Rate : 074 BPM Atrial Rate : 074 BPM P-R Int : 112 ms QRS Dur : 098 ms QT Int : 446 ms P-R-T Axes : 066 -76 061 degrees QTc Int : 495 ms Poor data quality, interpretation may be adversely affected Sinus rhythm with marked sinus arrhythmia Left anterior fascicular block Prolonged QT Abnormal ECG No previous ECGs available Confirmed by Sony Jarquin ([id number]) on 08/23/2021 9:26:26 PM Referred By: Confirmed By:Sony Jarquin
[2021-08-25 09:36] LABS: Codeine Urine NEGATIVE ng/mL (<50); Hydrocodone Urine NEGATIVE ng/mL (<50); Hydromor Urine NEGATIVE ng/mL (<50); Morphine Urine 575 ng/mL (<50); Norhydrocodone Conf Ur NEGATIVE ng/mL (<50); Noroxycodone Urine NEGATIVE ng/mL (<50); Oxycodone Urine NEGATIVE ng/mL (<50); Oxymorph Urine NEGATIVE ng/mL (<50)
== END 2021-08-23 16:55 | disposition home or self-care (01) ==
LOC: 2S 14:35 → ED 14:35 → 2S 17:39